=== PATIENT | female | born 1945 | race Caucasian/White ===

== ENCOUNTER → 2018-10-15 | Outpatient (CLI) | payer MEDICARE, OTHER | LOC: SUN.DIA | DX: E11.9 Type 2 diabetes mellitus without complications (principal); E78.5 Hyperlipidemia, unspecified; I10 Essential (primary) hypertension; E66.9 Obesity, unspecified | CPT/HCPCS: G0108 ==

== ENCOUNTER → 2018-11-06 | Outpatient (CLI) | payer MEDICARE, OTHER | LOC: SUN.DIA 11:44 | DX: E11.9 Type 2 diabetes mellitus without complications (principal); E78.5 Hyperlipidemia, unspecified; I10 Essential (primary) hypertension | CPT/HCPCS: G0109 ==

== ENCOUNTER → 2018-11-07 | Outpatient (CLI) | payer MEDICARE, OTHER | LOC: SUN.DIA 08:43 | DX: E11.9 Type 2 diabetes mellitus without complications (principal); E78.5 Hyperlipidemia, unspecified; I10 Essential (primary) hypertension; E66.9 Obesity, unspecified ==

== ENCOUNTER → 2018-11-13 | Outpatient (CLI) | payer MEDICARE, OTHER | LOC: SUN.DIA 10:48 | DX: E11.9 Type 2 diabetes mellitus without complications (principal) | CPT/HCPCS: G0109 ==

== ENCOUNTER → 2018-11-20 | Outpatient (CLI) | payer MEDICARE, OTHER | LOC: SUN.DIA 11:20 → DIA.ED 18:00 | DX: E11.9 Type 2 diabetes mellitus without complications (principal); E78.5 Hyperlipidemia, unspecified; I10 Essential (primary) hypertension; E66.9 Obesity, unspecified | CPT/HCPCS: G0109 ==

== ENCOUNTER → 2019-01-01 | Outpatient (CLI) | payer MEDICARE, OTHER | LOC: DIA.ED 13:58 | DX: E11.9 Type 2 diabetes mellitus without complications (principal); E78.5 Hyperlipidemia, unspecified; I10 Essential (primary) hypertension; E66.9 Obesity, unspecified | CPT/HCPCS: G0109 ==

== ENCOUNTER 2021-11-23 14:16 | Outpatient (RCR) | payer MEDICARE, OTHER | END 2021-11-24 | disposition home or self-care (01) | LOC: WSPT | DX: M54.41 Lumbago with sciatica, right side (principal) ==

== ENCOUNTER → 2021-12-07 | Outpatient (CLI) | payer MEDICARE | LOC: COL.RAD 10:11 | DX: M48.061 Spinal stenosis, lumbar region without neurogenic claudication (principal); M47.816 Spondylosis without myelopathy or radiculopathy, lumbar region; M47.817 Spondylosis without myelopathy or radiculopathy, lumbosacral region ==

== ENCOUNTER 2021-12-22 12:45 | Outpatient (RCR) | payer MEDICARE, OTHER | END 2021-12-25 | disposition home or self-care (01) | LOC: WSPT | DX: M54.41 Lumbago with sciatica, right side (principal) ==

== ENCOUNTER 2022-01-24 10:30 | Outpatient (RCR) | payer MEDICARE, OTHER | END 2022-01-25 | disposition home or self-care (01) | LOC: WSC | DX: M54.41 Lumbago with sciatica, right side (principal) ==

== ENCOUNTER → 2024-03-13 | Outpatient (CLI) | payer MEDICARE ==
[~2024-03-13] MED LIST: Albuterol 0.083% Neb Soln 2.5 MG/3 ML UD IH ONE
== END ==
LOC: COL.RAD 09:12
DX: I07.1 Rheumatic tricuspid insufficiency (principal); J98.4 Other disorders of lung; K44.9 Diaphragmatic hernia without obstruction or gangrene